=== PATIENT | male | born 1955 | race Hispanic/Latino ===

== ENCOUNTER 2024-05-21 13:57 | Emergency (ER) | payer MEDICARE ==
[~2024-05-21] VITALS: Ht 172.7 cm; Wt 121.6 kg
[2024-05-21 16:13] LABS: BASOPHILS % 0.1 % (0.0-1.0); EOSINOPHILS % 0.1 % (0.0-6.0); HEMATOCRIT 33.1 % (38.2-49.6); HEMOGLOBIN 11.3 g/dL (14.0-18.0); LYMPHOCYTES % 6.1 % (18.0-39.1); MEAN CORPUSCULAR HEMOGLOBIN 32.1 pg (28-32); MEAN CORPUSCULAR HGB CONC 34.1 g/dL (31-35); MONOCYTES # (AUTO) 1.1 (0.2-0.8); MONOCYTES % 6.7 % (4.4-11.3); NEUTROPHILS # (AUTO) 14.1 (2.1-6.9); NEUTROPHILS % 86.6 % (38.7-80.0); PLATELET COUNT 207 x10e3/uL (140-360); RED BLOOD COUNT 3.52 x10e6/uL (4.3-5.7); RED CELL DISTRIBUTION WIDTH 13.5 % (11.7-14.4); WHITE BLOOD COUNT 16.27 x10e3/uL (4.8-10.8)
[2024-05-21] MEDS: Morphine 4mg INJECTION 4 MG/ML INJ IV ONE (16:32)
[2024-05-21 16:38] LABS: ALBUMIN/GLOBULIN RATIO 1.3 (0.8-2.0); ANION GAP 17.5 mmol/L (8-16); BILIRUBIN,TOTAL 0.8 mg/dL (0.2-1.2); CALCIUM 9.8 mg/dL (8.4-10.2); CREATININE, SERUM 1.7 mg/dL (0.72-1.25); POTASSIUM 4.5 mmol/L (3.5-5.1); TOTAL PROTEIN 7.1 g/dL (6.5-8.1)
[2024-05-21] MEDS ORDERED: PREDNISONE20 MG PO (18:39)
[2024-05-21 18:47] VITALS: PULSE 90; RESP 20; TEMP 99.7
[2024-05-21] MEDS: PREDNISONE 20 MG TAB PO ONE (18:51)
[2024-05-21 18:59] VITALS: BP 100/89; PULSE 90; RESP 18; O2SAT 97
== END 2024-05-21 19:03 | disposition home or self-care (01) ==
LOC: ER 15:37
DX: R50.9 Fever, unspecified (principal); M10.9 Gout, unspecified; M25.542 Pain in joints of left hand; M25.541 Pain in joints of right hand; M25.531 Pain in right wrist; M79.661 Pain in right lower leg; I10 Essential (primary) hypertension; E11.65 Type 2 diabetes mellitus with hyperglycemia; E78.5 Hyperlipidemia, unspecified; I50.9 Heart failure, unspecified; E66.9 Obesity, unspecified; Z95.1 Presence of aortocoronary bypass graft
CPT/HCPCS: 36415; 80053; 82550; 85025; 93970 ×2; 93971; 96374; 99284; J2270; J7512